=== PATIENT | male | born 1955 | race Caucasian/White ===

== ENCOUNTER 2022-11-13 06:59 | Day surgery (SDC) | payer OTHER ==
[~2022-11-13] VITALS: Ht 160 cm; Wt 78.0 kg
[2022-11-13] MEDS ORDERED: fentaNYL citrate 0.05 MG/ML VIAL ONE (07:46)
[2022-11-13] MEDS ORDERED: MIDAZOLAM 5 MG/5 ML VIAL ONE (07:46)
[2022-11-13] MEDS ORDERED: LIDOCAINE 2% 100 MG/5 ML UJET TP ONE (07:46)
== END 2022-11-13 09:18 | disposition home or self-care (01) ==
LOC: MDS 06:59 → MMU 07:00 → MDS 09:18
PROVIDERS: ATTEND Internal Medicine Gastroenterology
DX: Z12.11 Encounter for screening for malignant neoplasm of colon (principal); K63.5 Polyp of colon; K57.30 Diverticulosis of large intestine without perforation or abscess without bleeding; E11.9 Type 2 diabetes mellitus without complications; K21.9 Gastro-esophageal reflux disease without esophagitis; M19.90 Unspecified osteoarthritis, unspecified site; Z79.84 Long term (current) use of oral hypoglycemic drugs; Z79.899 Other long term (current) drug therapy; Z20.822 Contact with and (suspected) exposure to COVID-19
CPT/HCPCS: 45385; 87426; J3010; J2250